=== PATIENT | female | born 1975 | race Caucasian/White ===

== ENCOUNTER 2019-05-19 08:48 | Emergency (ER) | payer BC ==
--- NOTE | 2019-05-19 09:11 | ED ---
HPI Chest Pain - HPI Summary HPI Summary: 44 year old F presenting to [facility] with a chief complaint of left sided chest pain, left sided arm pain and numbness, diaphoresis, neck numbness and tingling , nausea, and shortness of breath since 08:00. Patient states she was at work, on the stairs, felt L sided CP that was sharp a/w mild SOB. Pain did not radiate. Pain lasted a few minutes. Afterwards , she was given nitroglycerin at which point her arm began to feel numb and weak. Currently, she rates the pain 0 /10 in severity Patient reports difficulty lifting her left arm 2/2 weakness. Patient denies any vomiting. No cardiac hx, no hx DVT/PE. Medication list reviewed. Allergy list reviewed. - History of Current Complaint Chief Complaint: EDChestPainROMI Time Seen by Provider: 05/19/19 08:55 Hx Obtained From: Patient Onset/Duration: Started Hours Ago Current Severity: None Pain Intensity: 0 Pain Scale Used: 0-10 Numeric Chest Pain Radiates To:: Arm - Left Aggravating Factor(s): Nothing Alleviating Factor(s): Nothing Associated Signs and Symptoms: Positive: Numbness, Tingling, Shortness of Breath , Nausea, Other: - Left arm pain and numbness; neck tingling and numbness; diaphoresis - Allergy/Home Medications Allergies/Adverse Reactions: Allergies Allergy/AdvReac Type Severity Reaction Status Date / Time No Known Allergies Allergy Verified 04/05/15 07:10 Home Medications: Home Medications NK [No Home Medications Reported] 05/19/19 [History Confirmed 05/19/19] PMH/Surg Hx/FS Hx/Imm Hx Sensory History: Denies: Hx Contacts or Glasses, Hx Hearing Aid Opthamlomology History: Denies: Hx Contacts or Glasses - Cancer History Hx Chemotherapy: No Hx Radiation Therapy: No - Surgical History Surgery Procedure, Year, and Place: GALLBLADDER [id number] +YEARS AGO Hx Anesthesia Reactions: No Infectious Disease History: No Infectious Disease History: Denies: Traveled Outside the [place] in Last 30 Days - Social History Alcohol Use: Occasionally Substance Use Type: Reports: None Smoking Status (MU): Light Every Day Tobacco Smoker Amount Used/How Often: 5 CIGARETTES PER DAY X 25 YEARS Have You Smoked in the Last Year: Yes Review of Systems Positive: Skin Diaphoresis Positive: Chest Pain Positive: Shortness Of Breath Positive: Nausea. Negative: Vomiting Positive: Other - Left arm pain and numbness; neck numbness and tingling Positive: Paresthesia, Numbness All Other Systems Reviewed And Are Negative: Yes Physical Exam - Summary Physical Exam Summary: Constitutional: Well-developed, Well-nourished, Alert. (-) Distressed Skin: Warm, Dry HENT: Normocephalic; Atraumatic Eyes: Conjunctiva normal Neck: Musculoskeletal ROM normal neck. (-) JVD, (-) Stridor, (-) Nuchal rigidity Cardio: Rhythm regular, rate normal, Heart sounds normal; Intact distal pulses; Radial pulses are 2+ and symmetric. (-) Murmur Pulmonary/Chest wall: Effort normal. (-) Respiratory distress, (-) Wheezes, (-) Rales Abd: Soft, (-) tenderness, (-) Distension, (-) Guarding, (-) Rebound Musculoskeletal: (-) Edema Lymph: (-) Cervical adenopathy Neuro: Alert, Oriented x3; CN 2-12 grossly intact, decreased sensation from the left shoulder down to the fingers, strength 4-5 throughout the entire arm. Otherwise SILT and strength 5/5 throughout Psych: Mood and affect Normal Triage Information Reviewed: Yes Vital Signs On Initial Exam: Initial Vitals Temp Pulse Resp BP Pulse Ox 98.0 F 86 19 129/84 97 05/19/19 08:49 05/19/19 08:49 05/19/19 08:49 05/19/19 08:49 05/19/19 08:49 Vital Signs Reviewed: Yes Procedures - Sedation Patient Received Moderate/Deep Sedation with Procedure: No Diagnostics - Vital Signs Vital Signs Temp Pulse Resp BP Pulse Ox 05/19/19 09:00 19 05/19/19 08:49 98.0 F 86 19 129/84 97 - Laboratory Result Diagrams: 05/19/19 09:03 05/19/19 09:03 Lab Statement: Any lab studies that have been ordered have been reviewed, and results considered in the medical decision making process. - Radiology Chest x-ray Radiology Interpretation Completed By: Radiologist Summary of Radiographic Findings: No radiographic evidence for acute cardiopulmonary abnormality on this. portable chest x-ray. ED physician has reviewed this report. - EKG 08:47 Cardiac Rate: NL - 80 BPM EKG Rhythm: Sinus Rhythm Summary of EKG Findings: An EKG at 08:47 reveals normal sinus rhythm rate of 80 BPM, T-Wave inversions in lead 3. ED physician has reviewed and interpreted this EKG. Re-Evaluation - Re-Evaluation First Eval Re-Evaluation Time: 10:35 Change: Improved Comment: Symptoms have improved. No CP. Full ROM and sensation to arm. Chest Pain Course/Dx - Course Course Of Treatment: 44 y/o F w no prior PMH p/w CP now resolved and arm pain/ paresthsias. - PE well appearing, mild dec ROM of L arm 2/2 weakness. Reporting dec sensation from shoulder to hand. 2+ radial pulse. No Cspine TTP. - CXR unremarkable, no mediastinal widening, no tearing CP suggestive of dissection. EKG sinus non ischemic, troponin negative x2. Symptoms resolved in ED. Unclear cause of arm weakness w otherwise normal neuro exam, no neck pain, and resolving symptoms. Heart score 2, low risk. Can f/u outpatient w PCP. - Diagnoses Provider Diagnoses: Chest pain, Arm pain Discharge ED - Sign-Out/Discharge Documenting (check all that apply): Patient Departure - Discharge Plan Condition: Stable Disposition: HOME Patient Education Materials: Chest Pain (ED) Referrals: Keron Guthrie MD [Primary Care Provider] - Additional Instructions: You were seen in the emergency department for chest pain. Your EKG (heart tracing), labs and chest x-ray did not show any cause for pain. Important that you follow up with you primary care doctor in the next 1-2 days to help schedule an outpatient stress test. Please return to the emergency department for continued chest pain, trouble breathing, passing out, or if you're concerned. - Billing Disposition and Condition Condition: STABLE Disposition: Home - Attestation Statements Document Initiated by Scribe: Yes Documenting Scribe: Digna Pascual Provider For Whom Tara is Documenting (Include Credential): Floyd Guzman MD Scribe Attestation: Digna Prasad, scribed for Floyd Guzman MD on 05/20/19 at 1043. Scribe Documentation Reviewed: Yes Provider Attestation: The documentation as recorded by the Digna paige accurately reflects the service I personally performed and the decisions made by me, Floyd Guzman MD Status of Scribe Document: Viewed
[2019-05-19 09:19] LABS: ABS Basophils 0.1 10^3/ul (0-0.2); ABS Eosinophils 0.3 10^3/ul (0-0.6); ABS Lymphocytes 1.6 10^3/ul (1.0-4.8); ABS Monocytes 0.3 10^3/ul (0-0.8); ABS Neutrophils 3.6 10^3/ul (1.5-7.7); Eosinophil % 4.3 %; Hematocrit 40 % (35-47); Hemoglobin 13.5 g/dL (12.0-16.0); Lymphocyte % 27.9 %; Mean Corpuscular HGB Conc 34 g/dL (31-36); Mean Corpuscular Hemoglobin 30 pg (27-31); Mean Corpuscular Volume 88 fL (80-97); Mean Platelet Volume 8.4 fL (7.4-10.4); Platelet Count 231 10^3/uL (150-450); Red Blood Count 4.51 10^6 /uL (3.70-4.87); Red Cell Distribution Width 13 % (10-15); White Blood Count 5.9 10^3/uL (3.5-10.8)
[2019-05-19 10:00] LABS: Albumin 4.1 g/dL (3.2-5.2); Potassium 3.7 mmol/L (3.5-5.0); Total Bilirubin 0.6 mg/dL (0.2-1.0)
[2019-05-19 10:06] LABS: Albumin/Globulin Ratio 1.6 (1-3); BUN/Creatinine Ratio 23.4 (8-20); EGFR African American 120.9 (>60); EGFR Non-African American 99.9 (>60); Globulin 2.5 g/dL (2-4); Total Protein 6.6 g/dL (6.4-8.9)
[2019-05-19 10:13] LABS: HCG Pregnancy 1.1 mIU/mL
[2019-05-19] MEDS ORDERED: Ibuprofen TAB* 600 MG PO ONE (10:14)
[2019-05-19 12:57] VITALS: BP 106/78
== END 2019-05-19 13:02 | disposition home or self-care (01) ==
LOC: ED 08:48
DX: R07.9 Chest pain, unspecified (principal); M79.602 Pain in left arm; F17.210 Nicotine dependence, cigarettes, uncomplicated; R06.02 Shortness of breath; R20.0 Anesthesia of skin
CPT/HCPCS: 36415; 71045; 80053; 83605; 84484; 84702; 85025; 93005; 99283; A9270-GY